=== PATIENT | male | born 1940 | race Caucasian/White ===

== ENCOUNTER 2018-01-28 16:15 | Emergency (ER) | payer MEDICARE, OTHER ==
[~2018-01-28] VITALS: Ht 185.4 cm; Wt 101.8 kg
[2018-01-28 17:00] LABS: BASOPHILS % (AUTO) 0.3 % (0-1); EOSINOPHILS # (AUTO) 0.1 X10'3 (0-0.9); HEMATOCRIT 39.8 % (42.0-52.0); HEMOGLOBIN 13.3 g/dl (14.0-17.9); LYMPHOCYTES # (AUTO) 1.2 X10'3 (1.1-4.8); LYMPHOCYTES % (AUTO) 23.5 % (21-51); MEAN CORPUSCULAR HGB CONC 33.3 % (33.0-36.5); MEAN CORPUSCULAR VOLUME 99.2 FL (78-98); MEAN PLATELET VOLUME 8.8 FL (7.4-10.4); MONOCYTES # (AUTO) 0.5 X10'3 (0-0.9); NEUTROPHILS # (AUTO) 3.2 X10'3 (1.8-7.7); NEUTROPHILS % (AUTO) 65.2 % (42-75); PLATELET COUNT 234 X10'3 (140-440); RED BLOOD COUNT 4.02 X10'6 (4.70-6.10); RED CELL DISTRIBUTION WIDTH 14.4 % (11.5-14.5); WHITE BLOOD COUNT 4.9 X10'3 (4.5-11.0)
[2018-01-28 17:13] LABS: ALANINE AMINOTRANSFERASE 27 U/L (12-78); ALBUMIN 3.7 G/DL (3.4-5.0); ALBUMIN/GLOBULIN RATIO 1.1 (1.1-1.5); ALKALINE PHOSPHATASE 81 IU/L (46-116); ANION GAP 8 (8-16); ASPARTATE AMINO TRANSFERASE 17 U/L (10-37); BILIRUBIN,TOTAL 0.7 MG/DL (0.1-1.0); BLOOD UREA NITROGEN 17 MG/DL (7-18); BUN/CREATININE RATIO 17.5 (5.4-32.0); CALCIUM 8.2 MG/DL (8.5-10.1); CHLORIDE 107 MMOL/L (99-107); CREATININE 0.97 MG/DL (0.60-1.10); GLUCOSE 84 MG/DL (70-104); POTASSIUM 4.1 MMOL/L (3.5-5.1); SODIUM 144 MMOL/L (135-145); TOTAL CARBON DIOXIDE 29.4 MMOL/L (24-32); TOTAL PROTEIN 7.1 G/DL (6.4-8.2); eGFR 75 ML/MIN
[2018-01-28] MEDS ORDERED: DONE10TA44 PO (17:13)
[2018-01-28] MEDS ORDERED: SERT25TA PO (17:15)
[2018-01-28] MEDS ORDERED: MIRT15TA3 PO (17:15)
[2018-01-28 17:22] LABS: ETHANOL < 0.010 GM/DL (0.0-0.010)
[2018-01-28 18:28] LABS: CLARITY,URINE SLIGHTLY CLOUDY (Clear); COLOR,URINE YELLOW (Yellow); GLUCOSE, URINE NEGATIVE (Neg); KETONES,URINE NEGATIVE (Neg); LEUKOCYTE ESTERASE ,URINE NEGATIVE (Neg); NITRITES, URINE NEGATIVE (Neg); OCCULT BLOOD,URINE NEGATIVE (Neg); PH,URINE 5.5 (4.8-8.0); PROTEIN,URINE NEGATIVE (Neg); UROBILINOGEN,URINE 0.2 E.U/dL (0.2-1.0)
[2018-01-28 18:29] LABS: UA COLLECTION TYPE CLN CATCH MIDSTREAM
[2018-01-28 18:40] LABS: URINE AMPHETAMINE SCREEN NEGATIVE (Neg); URINE BARBITUATE SCREEN NEGATIVE (Neg); URINE BENZODIAZEPINES SCREEN NEGATIVE (Neg); URINE CANNABINOID SCREEN NEGATIVE (Neg); URINE COCAINE SCREEN NEGATIVE (Neg); URINE METHADONE SCREEN NEGATIVE (Neg); URINE OPIATE SCREEN NEGATIVE (Neg); URINE PHENCYCLIDINE SCREEN NEGATIVE (Neg)
[2018-01-28 18:53] LABS: RBC,URINE 0-2 /HPF (0-2)
[2018-01-28 18:54] LABS: BACTERIA,URINE FEW /HPF (Neg); MUCUS STRANDS MANY /LPF (Neg); SQUAMOUS EPITHELIAL CELL,UR FEW /LPF (FEW)
[2018-01-29] MEDS: donepezil 5mg tablet PO SCH (09:12)
[2018-01-29] MEDS: sertraline 25mg tablet PO SCH (09:13)
[2018-01-29] MEDS ORDERED: LORazepam 2 mg/ml vial IM ONE (20:45)
[2018-01-29] MEDS ORDERED: diphenhydrAMINE 50 mg/ml inj IM ONE (20:45)
[2018-01-29] MEDS ORDERED: haloperidol lactate 5mg/ml inj IM ONE (20:45)
[2018-01-29] MEDS ORDERED: mirtazapine 15mg tablet PO SCH (21:00)
[2018-01-30] MEDS: sertraline 25mg tablet PO SCH (08:45)
[2018-01-30] MEDS: donepezil 5mg tablet PO SCH (08:46)
[2018-01-30 17:03] VITALS: BP 135/94
== END 2018-01-30 16:00 ==
LOC: ER 16:15
DX: R45.851 Suicidal ideations (principal); F32.9 Major depressive disorder, single episode, unspecified; Z90.49 Acquired absence of other specified parts of digestive tract; Z79.899 Other long term (current) drug therapy
CPT/HCPCS: 36415; 80053; 80305; 80320; 81001; 84443; 85025; 96372; 99285; J1200; J1630; J2060

== ENCOUNTER 2018-01-30 13:36 | Inpatient (IN) | payer MEDICARE, OTHER ==
[~2018-01-30] VITALS: Ht 190.5 cm; Wt 98.0 kg
[~2018-01-30 13:36] MED LIST: DONE10TA44 PO; MIRT15TA3 PO; SERT25TA PO
[2018-01-30] MEDS ORDERED: mag hydrox/Alum hydrox/simeth 30ml oral suspension PO PRN (17:55)
[2018-01-30] MEDS ORDERED: acetaminophen 325mg tablet PO PRN ×2 (17:55)
[2018-01-30] MEDS ORDERED: tuberculin, purif. prot. deriv. 5 units/0.1ml ID ONE (17:55)
[2018-01-30] MEDS ORDERED: magnesium hydroxide 30ml (MOM) UD suspension PO PRN (17:55)
[2018-01-30 20:05] VITALS: BP 171/72
[2018-01-30] MEDS: mirtazapine 15mg tablet PO SCH (20:37)
[2018-01-31] MEDS: sertraline 25mg tablet PO SCH (08:52)
[2018-01-31] MEDS: donepezil 5mg tablet PO SCH (08:52)
[2018-01-31 09:00] VITALS: BP 95/68
[2018-01-31] MEDS ORDERED: OLANZapine 5mg rapidly disint. tablet PO PRN (09:20)
[2018-01-31] MEDS: LORazepam 1 MG tablet PO PRN (09:28)
[2018-01-31 19:00] VITALS: BP 129/76
[2018-01-31] MEDS: mirtazapine 15mg tablet PO SCH (21:03)
[2018-02-01 08:00] VITALS: BP 139/76
[2018-02-01] MEDS: sertraline 25mg tablet PO SCH (08:04)
[2018-02-01] MEDS: donepezil 5mg tablet PO SCH (08:05)
[2018-02-01 08:31] VITALS: BP 139/76
[2018-02-01 09:29] LABS: HEMOGLOBIN A1C 5.5 % (4.5-6.2)
[2018-02-01 09:34] LABS: CHOLESTEROL 143 MG/DL (0-200); HDL CHOLESTEROL 47 MG/DL (35-60); LDL CHOLESTEROL 86 MG/DL (50-100); TRIGLYCERIDES 88 MG/DL (20-135)
[2018-02-01 19:00] VITALS: BP 126/66
[2018-02-01] MEDS: mirtazapine 15mg tablet PO SCH (20:19)
[2018-02-02 08:02] VITALS: BP 159/76
[2018-02-02] MEDS: donepezil 5mg tablet PO SCH (08:05)
[2018-02-02] MEDS: sertraline 25mg tablet PO SCH (08:05)
[2018-02-02 19:00] VITALS: BP 145/75
[2018-02-02] MEDS: mirtazapine 15mg tablet PO SCH (21:05)
[2018-02-03 08:00] VITALS: BP 122/76
[2018-02-03] MEDS: donepezil 5mg tablet PO SCH (08:51)
[2018-02-03] MEDS: sertraline 25mg tablet PO SCH (08:51)
[2018-02-03] MEDS: LORazepam 1 MG tablet PO PRN (08:54)
[2018-02-03] MEDS: cetirizine 10mg tablet PO SCH (09:49)
[2018-02-03 19:27] VITALS: BP 125/65
[2018-02-03] MEDS: mirtazapine 15mg tablet PO SCH (20:47)
[2018-02-04] MEDS: donepezil 5mg tablet PO SCH (07:54)
[2018-02-04] MEDS: cetirizine 10mg tablet PO SCH (07:54)
[2018-02-04] MEDS: sertraline 25mg tablet PO SCH (07:54)
[2018-02-04 08:00] VITALS: BP 131/71
[2018-02-04 19:47] VITALS: BP 124/66
[2018-02-04] MEDS: mirtazapine 15mg tablet PO SCH (20:44)
[2018-02-05] MEDS: sertraline 25mg tablet PO SCH (07:50)
[2018-02-05] MEDS: cetirizine 10mg tablet PO SCH (07:50)
[2018-02-05] MEDS: donepezil 5mg tablet PO SCH (07:50)
[2018-02-05 08:00] VITALS: BP 143/71
[2018-02-05 20:00] VITALS: BP 120/61
[2018-02-05] MEDS: mirtazapine 15mg tablet PO SCH (20:44)
[2018-02-06] MEDS: cetirizine 10mg tablet PO SCH (07:49)
[2018-02-06] MEDS: sertraline 25mg tablet PO SCH (07:49)
[2018-02-06] MEDS: donepezil 5mg tablet PO SCH (07:49)
[2018-02-06 08:19] VITALS: BP 145/82
[2018-02-06 20:00] VITALS: BP 127/65
[2018-02-06] MEDS: mirtazapine 15mg tablet PO SCH (21:02)
[2018-02-07] MEDS: cetirizine 10mg tablet PO SCH (07:59)
[2018-02-07] MEDS: sertraline 25mg tablet PO SCH (07:59)
[2018-02-07 08:00] VITALS: BP 125/67
[2018-02-07] MEDS: donepezil 5mg tablet PO SCH (08:00)
[2018-02-07 19:00] VITALS: BP 124/67
[2018-02-07] MEDS: mirtazapine 15mg tablet PO SCH (21:23)
[2018-02-08 08:00] VITALS: BP 134/74
[2018-02-08] MEDS: sertraline 25mg tablet PO SCH (08:06)
[2018-02-08] MEDS: donepezil 5mg tablet PO SCH (08:07)
[2018-02-08] MEDS: cetirizine 10mg tablet PO SCH (08:07)
[2018-02-08 19:00] VITALS: BP 111/68
[2018-02-08] MEDS: mirtazapine 15mg tablet PO SCH (21:07)
[2018-02-09 08:00] VITALS: BP 115/47
[2018-02-09] MEDS: sertraline 50mg tablet PO SCH (08:09)
[2018-02-09] MEDS: cetirizine 10mg tablet PO SCH (08:09)
[2018-02-09] MEDS: donepezil 5mg tablet PO SCH (08:09)
[2018-02-09 19:00] VITALS: BP 129/68
[2018-02-09] MEDS: mirtazapine 15mg tablet PO SCH (20:42)
[2018-02-10 08:00] VITALS: BP 141/67
[2018-02-10] MEDS: cetirizine 10mg tablet PO SCH (08:18)
[2018-02-10] MEDS: donepezil 5mg tablet PO SCH (08:18)
[2018-02-10] MEDS: sertraline 50mg tablet PO SCH (08:19)
[2018-02-10 19:55] VITALS: BP 124/66
[2018-02-10] MEDS: mirtazapine 15mg tablet PO SCH (20:24)
[2018-02-11 08:00] VITALS: BP 138/69
[2018-02-11] MEDS: donepezil 5mg tablet PO SCH (08:10)
[2018-02-11] MEDS: sertraline 50mg tablet PO SCH (08:10)
[2018-02-11] MEDS: cetirizine 10mg tablet PO SCH (08:10)
[2018-02-11 19:52] VITALS: BP 132/69
[2018-02-11] MEDS: mirtazapine 15mg tablet PO SCH (20:32)
[2018-02-12] MEDS: sertraline 50mg tablet PO SCH (07:45)
[2018-02-12] MEDS: cetirizine 10mg tablet PO SCH (07:45)
[2018-02-12] MEDS: donepezil 5mg tablet PO SCH (07:45)
[2018-02-12 08:00] VITALS: BP 122/64
[2018-02-12 20:00] VITALS: BP 123/66
[2018-02-12] MEDS: mirtazapine 15mg tablet PO SCH (20:09)
[2018-02-13 07:42] VITALS: BP 140/70
[2018-02-13] MEDS: cetirizine 10mg tablet PO SCH (07:49)
[2018-02-13] MEDS: sertraline 50mg tablet PO SCH (07:50)
[2018-02-13] MEDS: donepezil 5mg tablet PO SCH (07:50)
[2018-02-13 20:11] VITALS: BP 127/68
[2018-02-13] MEDS: mirtazapine 15mg tablet PO SCH (20:28)
[2018-02-14] MEDS: donepezil 5mg tablet PO SCH (08:07)
[2018-02-14] MEDS: sertraline 50mg tablet PO SCH (08:08)
[2018-02-14] MEDS: cetirizine 10mg tablet PO SCH (08:08)
[2018-02-14 08:10] VITALS: BP 126/75
[2018-02-14 19:00] VITALS: BP 139/63
[2018-02-14] MEDS: mirtazapine 15mg tablet PO SCH (20:39)
[2018-02-14] MEDS: ibuprofen tablet 400 MG TABLET PO PRN (20:39)
[2018-02-15 07:38] VITALS: BP 119/77
[2018-02-15] MEDS: donepezil 5mg tablet PO SCH (08:21)
[2018-02-15] MEDS: sertraline 50mg tablet PO SCH (08:21)
[2018-02-15] MEDS: LORazepam 1 MG tablet PO PRN (08:21)
[2018-02-15] MEDS: cetirizine 10mg tablet PO SCH (08:21)
[2018-02-15 19:00] VITALS: BP 147/71
[2018-02-15] MEDS: mirtazapine 15mg tablet PO SCH (20:29)
[2018-02-16] MEDS: cetirizine 10mg tablet PO SCH (07:34)
[2018-02-16] MEDS: sertraline 50mg tablet PO SCH (07:34)
[2018-02-16] MEDS: donepezil 5mg tablet PO SCH (07:34)
[2018-02-16 08:00] VITALS: BP 140/76
[2018-02-16 19:00] VITALS: BP 139/68
[2018-02-16] MEDS: mirtazapine 15mg tablet PO SCH (20:49)
[2018-02-17] MEDS: cetirizine 10mg tablet PO SCH (07:49)
[2018-02-17] MEDS: donepezil 5mg tablet PO SCH (07:49)
[2018-02-17] MEDS: sertraline 50mg tablet PO SCH (07:50)
[2018-02-17 08:00] VITALS: BP 128/72
[2018-02-17 19:55] VITALS: BP 133/70
[2018-02-17] MEDS: mirtazapine 15mg tablet PO SCH (21:26)
[2018-02-18 07:38] VITALS: BP 111/72
[2018-02-18] MEDS: sertraline 50mg tablet PO SCH (08:18)
[2018-02-18] MEDS: donepezil 5mg tablet PO SCH (08:18)
[2018-02-18] MEDS: cetirizine 10mg tablet PO SCH (08:18)
[2018-02-18 19:56] VITALS: BP 134/71
[2018-02-18] MEDS: mirtazapine 15mg tablet PO SCH (21:00)
[2018-02-19 08:00] VITALS: BP 134/63
[2018-02-19] MEDS: sertraline 50mg tablet PO SCH (08:52)
[2018-02-19] MEDS: cetirizine 10mg tablet PO SCH (08:52)
[2018-02-19] MEDS: donepezil 5mg tablet PO SCH (08:52)
[2018-02-19 19:00] VITALS: BP 94/64
[2018-02-19] MEDS: mirtazapine 15mg tablet PO SCH (20:37)
[2018-02-20 08:00] VITALS: BP 133/70
[2018-02-20] MEDS: donepezil 5mg tablet PO SCH (08:02)
[2018-02-20] MEDS: cetirizine 10mg tablet PO SCH (08:02)
[2018-02-20] MEDS: sertraline 50mg tablet PO SCH (08:02)
[2018-02-20 20:00] VITALS: BP 120/64
[2018-02-20] MEDS: mirtazapine 15mg tablet PO SCH (20:42)
[2018-02-21 08:00] VITALS: BP 132/72
[2018-02-21] MEDS: cetirizine 10mg tablet PO SCH (08:07)
[2018-02-21] MEDS: sertraline 50mg tablet PO SCH (08:07)
[2018-02-21] MEDS: donepezil 5mg tablet PO SCH (08:07)
[2018-02-21 20:00] VITALS: BP 150/64
[2018-02-21] MEDS: mirtazapine 15mg tablet PO SCH (21:28)
[2018-02-21] MEDS: ibuprofen tablet 400 MG TABLET PO PRN (21:30)
[2018-02-22 08:00] VITALS: BP 137/77
[2018-02-22] MEDS: cetirizine 10mg tablet PO SCH (08:11)
[2018-02-22] MEDS: donepezil 5mg tablet PO SCH (08:11)
[2018-02-22] MEDS: sertraline 50mg tablet PO SCH (08:11)
[2018-02-22 19:00] VITALS: BP 137/71
[2018-02-22] MEDS: mirtazapine 15mg tablet PO SCH (21:12)
[2018-02-23] MEDS: sertraline 50mg tablet PO SCH (08:17)
[2018-02-23] MEDS: donepezil 5mg tablet PO SCH (08:17)
[2018-02-23] MEDS: cetirizine 10mg tablet PO SCH (08:17)
[2018-02-23 08:49] VITALS: BP 128/71
[2018-02-23 20:00] VITALS: BP 128/60
[2018-02-23] MEDS: mirtazapine 15mg tablet PO SCH (20:44)
[2018-02-24] MEDS: cetirizine 10mg tablet PO SCH (07:35)
[2018-02-24] MEDS: sertraline 50mg tablet PO SCH (07:35)
[2018-02-24] MEDS: donepezil 5mg tablet PO SCH (07:35)
[2018-02-24 08:00] VITALS: BP 137/69
[2018-02-24 19:50] VITALS: BP 147/76
[2018-02-24] MEDS: mirtazapine 15mg tablet PO SCH (21:05)
[2018-02-25 08:00] VITALS: BP 107/52
[2018-02-25] MEDS: sertraline 50mg tablet PO SCH (08:03)
[2018-02-25] MEDS: donepezil 5mg tablet PO SCH (08:03)
[2018-02-25] MEDS: cetirizine 10mg tablet PO SCH (08:03)
[2018-02-25 19:50] VITALS: BP 102/52
[2018-02-25] MEDS: mirtazapine 15mg tablet PO SCH (21:45)
[2018-02-26 08:00] VITALS: BP 132/71
[2018-02-26] MEDS: sertraline 50mg tablet PO SCH (08:10)
[2018-02-26] MEDS: cetirizine 10mg tablet PO SCH (08:10)
[2018-02-26] MEDS: donepezil 5mg tablet PO SCH (08:10)
[2018-02-26 20:00] VITALS: BP 128/69
[2018-02-26] MEDS: mirtazapine 15mg tablet PO SCH (21:42)
[2018-02-27 08:00] VITALS: BP 118/67
[2018-02-27] MEDS: sertraline 50mg tablet PO SCH (08:26)
[2018-02-27] MEDS: donepezil 5mg tablet PO SCH (08:26)
[2018-02-27] MEDS: cetirizine 10mg tablet PO SCH (08:26)
[2018-02-27 20:00] VITALS: BP 108/50
[2018-02-27] MEDS: mirtazapine 15mg tablet PO SCH (21:22)
[2018-02-28 08:00] VITALS: BP 145/62
[2018-02-28] MEDS: cetirizine 10mg tablet PO SCH (08:16)
[2018-02-28] MEDS: sertraline 50mg tablet PO SCH (08:16)
[2018-02-28] MEDS: donepezil 5mg tablet PO SCH (08:16)
[2018-02-28 19:00] VITALS: BP 130/71
[2018-02-28] MEDS: mirtazapine 15mg tablet PO SCH (22:20)
[2018-02-28] MEDS: ibuprofen tablet 400 MG TABLET PO PRN (22:21)
[2018-03-01 08:00] VITALS: BP 127/75
[2018-03-01] MEDS: cetirizine 10mg tablet PO SCH (08:18)
[2018-03-01] MEDS: sertraline 50mg tablet PO SCH (08:18)
[2018-03-01 20:00] VITALS: BP 124/70
[2018-03-01] MEDS ORDERED: donepezil 5mg tablet PO SCH (21:00)
[2018-03-01] MEDS: mirtazapine 15mg tablet PO SCH (21:24)
[2018-03-01] MEDS: donepezil 5mg tablet PO SCH (21:24)
[2018-03-02 08:00] VITALS: BP 123/70
[2018-03-02] MEDS: cetirizine 10mg tablet PO SCH (08:30)
[2018-03-02] MEDS: sertraline 50mg tablet PO SCH (08:30)
[2018-03-02 20:00] VITALS: BP 130/66
[2018-03-02] MEDS: mirtazapine 15mg tablet PO SCH (21:00)
[2018-03-02] MEDS: donepezil 5mg tablet PO SCH (21:00)
[2018-03-03 08:00] VITALS: BP 122/73
[2018-03-03] MEDS: memantine 5mg tablet PO SCH (08:14)
[2018-03-03] MEDS: cetirizine 10mg tablet PO SCH (08:14)
[2018-03-03] MEDS: sertraline 50mg tablet PO SCH (08:14)
[2018-03-03 20:00] VITALS: BP 140/66
[2018-03-03] MEDS: LORazepam 1 MG tablet PO PRN (21:05)
[2018-03-03] MEDS: donepezil 5mg tablet PO SCH (21:05)
[2018-03-03] MEDS: mirtazapine 15mg tablet PO SCH (21:05)
[2018-03-04 08:00] VITALS: BP 106/56
[2018-03-04] MEDS: cetirizine 10mg tablet PO SCH (08:12)
[2018-03-04] MEDS: sertraline 50mg tablet PO SCH (08:13)
[2018-03-04] MEDS: memantine 5mg tablet PO SCH (08:13)
[2018-03-04] MEDS ORDERED: MEMA5TAB40 PO (10:23)
[2018-03-04] MEDS ORDERED: MIRT30TA8 PO (10:23)
[2018-03-04] MEDS ORDERED: DONE10TA37 PO (10:23)
[2018-03-04] MEDS ORDERED: CETI-110 PO (10:23)
[2018-03-04] MEDS ORDERED: SERT100T10 PO (10:23)
== END 2018-03-04 15:10 | disposition home health service (06) | DRG 885 ==
LOC: ADULT MH 13:36
PROVIDERS: ADMIT Psychiatry & Neurology Psychiatry; ATTEND Psychiatry & Neurology Psychiatry
DX: F33.2 Major depressive disorder, recurrent severe without psychotic features (principal); R45.851 Suicidal ideations; F03.90 Unspecified dementia, unspecified severity, without behavioral disturbance, psychotic disturbance, mood disturbance, and anxiety; R10.9 Unspecified abdominal pain; H53.40 Unspecified visual field defects; Z60.2 Problems related to living alone; H54.8 Legal blindness, as defined in USA; H91.90 Unspecified hearing loss, unspecified ear; I10 Essential (primary) hypertension; Z23 Encounter for immunization; Z90.49 Acquired absence of other specified parts of digestive tract; Z79.899 Other long term (current) drug therapy
CPT/HCPCS: 36415; 80061; 83036; 87070

== ENCOUNTER 2020-02-25 09:09 | Inpatient (IN) | payer MEDICARE ==
[~2020-02-25] VITALS: Ht 188 cm; Wt 100.0 kg
[~2020-02-25 09:09] MED LIST changes: +CETI-91 PO; +DONE10TA37 PO; -DONE10TA44 PO; +MEMA5TAB42 PO; -MIRT15TA3 PO; +MIRT30TA8 PO; +SERT100T10 PO; -SERT25TA PO
[2020-02-25 11:27] LABS: BASOPHILS # (AUTO) 0.1 X10'3 (0-0.2); BASOPHILS % (AUTO) 0.6 % (0-1); EOSINOPHILS # (AUTO) 0.1 X10'3 (0-0.9); EOSINOPHILS % (AUTO) 0.8 % (0-6); HEMATOCRIT 38.7 % (42.0-52.0); HEMOGLOBIN 13.1 g/dl (14.0-17.9); LYMPHOCYTES # (AUTO) 1.4 X10'3 (1.1-4.8); LYMPHOCYTES % (AUTO) 13.1 % (21-51); MEAN CORPUSCULAR HGB CONC 33.7 g/dL (33.0-36.5); MEAN CORPUSCULAR VOLUME 97.8 FL (78-98); MONOCYTES # (AUTO) 1.5 X10'3 (0-0.9); MONOCYTES % (AUTO) 14.1 % (2-12); NEUTROPHILS # (AUTO) 7.5 X10'3 (1.8-7.7); NEUTROPHILS % (AUTO) 71.4 % (42-75); PLATELET COUNT 346 X10'3 (140-440); RED BLOOD COUNT 3.96 X10'6 (4.70-6.10); RED CELL DISTRIBUTION WIDTH 14.2 % (11.5-14.5); WHITE BLOOD COUNT 10.5 X10'3 (4.5-11.0)
[2020-02-25 11:37] LABS: ALANINE AMINOTRANSFERASE 19 U/L (12-78); ALBUMIN 3.3 G/DL (3.4-5.0); ALBUMIN/GLOBULIN RATIO 0.8 (1.1-1.5); ALKALINE PHOSPHATASE 72 IU/L (46-116); ANION GAP 9 (8-16); ASPARTATE AMINO TRANSFERASE 16 U/L (10-37); BILIRUBIN,TOTAL 0.7 MG/DL (0.1-1.0); BLOOD UREA NITROGEN 10 MG/DL (7-18); BUN/CREATININE RATIO 12.2 (5.4-32.0); CALCIUM 8.9 MG/DL (8.5-10.1); CHLORIDE 106 MMOL/L (99-107); CREATININE 0.82 MG/DL (0.60-1.10); GLUCOSE 100 MG/DL (70-104); POTASSIUM 4.1 MMOL/L (3.5-5.1); SODIUM 142 MMOL/L (135-145); TOTAL CARBON DIOXIDE 27.4 MMOL/L (24-32); TOTAL PROTEIN 7.5 G/DL (6.4-8.2); eGFR 90 ML/MIN
[2020-02-25 12:44] LABS: CLARITY,URINE CLOUDY (Clear); COLOR,URINE YELLOW (Yellow); GLUCOSE, URINE NEGATIVE (Neg); KETONES,URINE NEGATIVE (Neg); LEUKOCYTE ESTERASE ,URINE LARGE (Neg); NITRITES, URINE POSITIVE (Neg); OCCULT BLOOD,URINE SMALL (Neg); PROTEIN,URINE NEGATIVE (Neg); UROBILINOGEN,URINE 0.2 E.U/dL (0.2-1.0)
[2020-02-25 12:47] LABS: UA COLLECTION TYPE NON-SPECIFIED
[2020-02-25 13:00] LABS: BACTERIA,URINE 4+ /HPF (Neg); RBC,URINE 0-2 /HPF (0-2); WBC,URINE TNTC /HPF (0-4)
[2020-02-25 13:01] LABS: SQUAMOUS EPITHELIAL CELL,UR NONE SEEN /LPF (FEW)
[2020-02-25] MEDS ORDERED: MIRT30TA8 PO (13:05)
[2020-02-25] MEDS ORDERED: DONE10TA44 PO (13:05)
[2020-02-25] MEDS ORDERED: MEMA10TA PO (13:05)
[2020-02-25] MEDS ORDERED: SERT100T PO (13:05)
[2020-02-25] MEDS ORDERED: CefTRIAXone/D5W-Rocephin 1gm 50 ML IV ONE (13:35)
[2020-02-25] MEDS ORDERED: potassium CL 10mEq/100ml bag 100 ML IV PRN ×2 (13:40)
[2020-02-25] MEDS ORDERED: ondansetron/PF 4mg/2ml inj IV PRN (13:40)
[2020-02-25] MEDS ORDERED: magnesium 2GM in 50ml NS 50 ML IV PRN (13:40)
[2020-02-25] MEDS ORDERED: acetaminophen 325mg tablet PO PRN (13:40)
[2020-02-25] MEDS ORDERED: magnesium Cl slow-release 64mg tablet PO PRN (13:40)
[2020-02-25] MEDS ORDERED: magnesium 4gm in 100ml NS 100 ML IV PRN (13:40)
[2020-02-25] MEDS ORDERED: potassium Cl 20 mEq SR tablet PO PRN ×2 (13:40)
[2020-02-25] MEDS: normal saline 1000ml 1,000 ML IV SCH ×2 (14:04→22:19)
--- NOTE | 2020-02-25 15:24 | NUR ---
PULLED IV OUT
[2020-02-25] MEDS: K and/or MAG REPLACEMENT MC SCH (20:00)
[2020-02-25] MEDS: docusate sod 100mg capsule PO SCH (20:00)
--- NOTE | 2020-02-25 20:57 | NUR ---
Patient in room ED 14. I have received report from Bev CORTEZ and had the opportunity to ask questions and assume patient care.
[2020-02-25 21:15] VITALS: BP 169/83
[2020-02-26 02:09] VITALS: BP 140/71
[2020-02-26 06:00] VITALS: BP 131/68
--- NOTE | 2020-02-26 06:10 | NUR ---
Patient in room ORTHO 4022. I have received report from Veronica and had the opportunity to ask questions and assume patient care.
--- NOTE | 2020-02-26 06:11 | NUR ---
Problems reprioritized. Patient report given, questions answered & plan of care reviewed with Arianne CORTEZ.
[2020-02-26 06:44] LABS: BASOPHILS % (AUTO) 0.3 % (0-1); EOSINOPHILS # (AUTO) 0.2 X10'3 (0-0.9); EOSINOPHILS % (AUTO) 2.7 % (0-6); HEMATOCRIT 36.3 % (42.0-52.0); HEMOGLOBIN 12.1 g/dl (14.0-17.9); LYMPHOCYTES # (AUTO) 1.5 X10'3 (1.1-4.8); LYMPHOCYTES % (AUTO) 17.7 % (21-51); MEAN CORPUSCULAR HEMOGLOBIN 32.3 PG (27.0-31.0); MEAN CORPUSCULAR HGB CONC 33.2 g/dL (33.0-36.5); MEAN PLATELET VOLUME 7.9 FL (7.4-10.4); MONOCYTES # (AUTO) 1.3 X10'3 (0-0.9); MONOCYTES % (AUTO) 15.3 % (2-12); NEUTROPHILS # (AUTO) 5.5 X10'3 (1.8-7.7); PLATELET COUNT 341 X10'3 (140-440); RED BLOOD COUNT 3.74 X10'6 (4.70-6.10); RED CELL DISTRIBUTION WIDTH 14.2 % (11.5-14.5); WHITE BLOOD COUNT 8.6 X10'3 (4.5-11.0)
[2020-02-26 06:59] LABS: ALBUMIN 2.9 G/DL (3.4-5.0); ANION GAP 11 (8-16); BLOOD UREA NITROGEN 10 MG/DL (7-18); BUN/CREATININE RATIO 12.3 (5.4-32.0); CALCIUM 8.5 MG/DL (8.5-10.1); CHLORIDE 108 MMOL/L (99-107); CREATININE 0.81 MG/DL (0.60-1.10); GLUCOSE 90 MG/DL (70-104); MAGNESIUM 2.1 MG/DL (1.5-2.4); POTASSIUM 3.9 MMOL/L (3.5-5.1); SODIUM 144 MMOL/L (135-145); TOTAL CARBON DIOXIDE 25.5 MMOL/L (24-32); eGFR > 90 ML/MIN
[2020-02-26] MEDS: docusate sod 100mg capsule PO SCH ×2 (07:39→20:00)
[2020-02-26] MEDS: K and/or MAG REPLACEMENT MC SCH ×2 (07:40→20:00)
[2020-02-26 08:15] LABS: ANISOCYTOSIS 1+; PLATELET ESTIMATE NORMAL; TOTAL CELLS COUNTED 100
[2020-02-26 10:00] VITALS: BP 162/91
[2020-02-26] MEDS: CefTRIAXone/D5W-Rocephin 1gm 50 ML IV SCH (14:43)
[2020-02-26] MEDS: normal saline 1000ml 1,000 ML IV SCH ×2 (14:49→19:40)
[2020-02-26 18:00] VITALS: BP 143/70
--- NOTE | 2020-02-26 18:31 | NUR ---
Problems reprioritized. Patient report given, questions answered & plan of care reviewed with
--- NOTE | 2020-02-26 19:00 | NUR ---
Patient in room ORTHO 4022. I have received report from Arianne CORTEZ and had the opportunity to ask questions and assume patient care.
[2020-02-26] MEDS: lactobacillus rhamnosus 10,000 MMU CELLS/CAPSULE PO SCH (20:14)
[2020-02-26 22:00] VITALS: BP 118/57
[2020-02-27] MEDS: normal saline 1000ml 1,000 ML IV SCH ×3 (05:46→23:58)
--- NOTE | 2020-02-27 06:20 | NUR ---
Problems reprioritized. Patient report given, questions answered & plan of care reviewed with Arianne CORTEZ.
--- NOTE | 2020-02-27 06:25 | NUR ---
Patient in room ORTHO 4022. I have received report from Veronica and had the opportunity to ask questions and assume patient care.
[2020-02-27 06:36] VITALS: BP 134/66
[2020-02-27] MEDS: CefTRIAXone/D5W-Rocephin 1gm 50 ML IV SCH (07:56)
[2020-02-27] MEDS: docusate sod 100mg capsule PO SCH ×2 (07:57→20:05)
[2020-02-27] MEDS: lactobacillus rhamnosus 10,000 MMU CELLS/CAPSULE PO SCH ×2 (07:57→20:05)
[2020-02-27 07:59] LABS: BASOPHILS % (AUTO) 0.3 % (0-1); EOSINOPHILS # (AUTO) 0.2 X10'3 (0-0.9); EOSINOPHILS % (AUTO) 2.4 % (0-6); HEMOGLOBIN 11.6 g/dl (14.0-17.9); LYMPHOCYTES # (AUTO) 1.5 X10'3 (1.1-4.8); LYMPHOCYTES % (AUTO) 17.1 % (21-51); MEAN CORPUSCULAR HEMOGLOBIN 32.3 PG (27.0-31.0); MEAN CORPUSCULAR HGB CONC 33.1 g/dL (33.0-36.5); MEAN CORPUSCULAR VOLUME 97.5 FL (78-98); MONOCYTES # (AUTO) 1.4 X10'3 (0-0.9); NEUTROPHILS # (AUTO) 5.7 X10'3 (1.8-7.7); NEUTROPHILS % (AUTO) 64.2 % (42-75); PLATELET COUNT 326 X10'3 (140-440); RED BLOOD COUNT 3.59 X10'6 (4.70-6.10); WHITE BLOOD COUNT 8.9 X10'3 (4.5-11.0)
[2020-02-27] MEDS: K and/or MAG REPLACEMENT MC SCH ×2 (08:00→18:58)
[2020-02-27 08:13] LABS: ALBUMIN 2.8 G/DL (3.4-5.0); ANION GAP 9 (8-16); BLOOD UREA NITROGEN 9 MG/DL (7-18); BUN/CREATININE RATIO 10.6 (5.4-32.0); CALCIUM 8.2 MG/DL (8.5-10.1); CHLORIDE 110 MMOL/L (99-107); CREATININE 0.85 MG/DL (0.60-1.10); GLUCOSE 94 MG/DL (70-104); POTASSIUM 3.7 MMOL/L (3.5-5.1); SODIUM 144 MMOL/L (135-145); TOTAL CARBON DIOXIDE 25.3 MMOL/L (24-32); eGFR 87 ML/MIN
[2020-02-27 09:14] LABS: TOTAL CELLS COUNTED 100
[2020-02-27 09:16] LABS: PLATELET ESTIMATE NORMAL
[2020-02-27 10:04] VITALS: BP 144/70
[2020-02-27] MEDS: memantine 5mg tablet PO SCH (11:26)
[2020-02-27] MEDS ORDERED: LEVO500T89 PO (15:18)
--- NOTE | 2020-02-27 17:09 | NUR ---
PAGER ID: [phone] MESSAGE: Arianne Bran on ortho, please call regarding pt in [phone]. Thank you Addendum: 02/27/20 at 1710 by Arianne Castro RN Received call from hospitalist. Hospitalist does not want pt to discharge via cab/[employer], hospitalist asked nursing staff to make arrangements for tomorrow
[2020-02-27 18:00] VITALS: BP 119/54
--- NOTE | 2020-02-27 18:12 | NUR ---
Problems reprioritized. Patient report given, questions answered & plan of care reviewed with Jane Mcguire
[2020-02-27] MEDS ORDERED: mirtazapine 15mg tablet PO SCH (21:00)
[2020-02-27] MEDS ORDERED: donepezil 5mg tablet PO SCH (21:00)
[2020-02-27 22:00] VITALS: BP 141/70
--- NOTE | 2020-02-28 06:00 | NUR ---
Patient in room ORTHO 4022. I have received report from Jane Mcguire and had the opportunity to ask questions and assume patient care.
--- NOTE | 2020-02-28 06:02 | NUR ---
Problems reprioritized. Patient report given, questions answered & plan of care reviewed with DIEGO Acuña.
[2020-02-28 06:15] LABS: BASOPHILS # (AUTO) 0.1 X10'3 (0-0.2); BASOPHILS % (AUTO) 0.8 % (0-1); EOSINOPHILS # (AUTO) 0.2 X10'3 (0-0.9); EOSINOPHILS % (AUTO) 2.2 % (0-6); HEMATOCRIT 36.9 % (42.0-52.0); HEMOGLOBIN 12.5 g/dl (14.0-17.9); LYMPHOCYTES # (AUTO) 1.7 X10'3 (1.1-4.8); LYMPHOCYTES % (AUTO) 18.8 % (21-51); MEAN CORPUSCULAR HEMOGLOBIN 33.3 PG (27.0-31.0); MEAN CORPUSCULAR HGB CONC 33.8 g/dL (33.0-36.5); MEAN CORPUSCULAR VOLUME 98.4 FL (78-98); MEAN PLATELET VOLUME 7.9 FL (7.4-10.4); MONOCYTES # (AUTO) 1.3 X10'3 (0-0.9); MONOCYTES % (AUTO) 14.1 % (2-12); NEUTROPHILS # (AUTO) 5.9 X10'3 (1.8-7.7); NEUTROPHILS % (AUTO) 64.1 % (42-75); PLATELET COUNT 328 X10'3 (140-440); RED BLOOD COUNT 3.75 X10'6 (4.70-6.10); RED CELL DISTRIBUTION WIDTH 13.8 % (11.5-14.5); WHITE BLOOD COUNT 9.1 X10'3 (4.5-11.0)
[2020-02-28 06:26] LABS: ALBUMIN 2.9 G/DL (3.4-5.0); ANION GAP 7 (8-16); BLOOD UREA NITROGEN 9 MG/DL (7-18); BUN/CREATININE RATIO 11.5 (5.4-32.0); CALCIUM 8.6 MG/DL (8.5-10.1); CHLORIDE 108 MMOL/L (99-107); CREATININE 0.78 MG/DL (0.60-1.10); GLUCOSE 93 MG/DL (70-104); MAGNESIUM 2.1 MG/DL (1.5-2.4); POTASSIUM 3.7 MMOL/L (3.5-5.1); SODIUM 140 MMOL/L (135-145); TOTAL CARBON DIOXIDE 24.6 MMOL/L (24-32); eGFR > 90 ML/MIN
[2020-02-28 06:40] VITALS: BP 160/78
[2020-02-28] MEDS: CefTRIAXone/D5W-Rocephin 1gm 50 ML IV SCH (08:00)
[2020-02-28] MEDS: K and/or MAG REPLACEMENT MC SCH (08:00)
[2020-02-28] MEDS ORDERED: sertraline 50mg tablet PO SCH (08:00)
[2020-02-28] MEDS: docusate sod 100mg capsule PO SCH (08:43)
[2020-02-28] MEDS: lactobacillus rhamnosus 10,000 MMU CELLS/CAPSULE PO SCH (08:43)
[2020-02-28] MEDS: memantine 5mg tablet PO SCH (08:43)
[2020-02-28 10:05] VITALS: BP 119/52
--- NOTE | 2020-02-28 11:05 | NUR ---
Reviewed discharge instructions with pt's facility caregiver. All of pt's belongings were given to pt's facility staff. Pt was transported by his facility's staff, back to his residence.
== END 2020-02-28 10:51 | disposition home health service (06) | DRG 690 ==
LOC: ER 09:09 → ED HOLD 13:40 → ORTHO 4S 21:12
PROVIDERS: ADMIT Internal Medicine; ATTEND Internal Medicine
DX: N39.0 Urinary tract infection, site not specified (principal); R62.7 Adult failure to thrive; M53.3 Sacrococcygeal disorders, not elsewhere classified; F03.90 Unspecified dementia, unspecified severity, without behavioral disturbance, psychotic disturbance, mood disturbance, and anxiety; W18.39XA Other fall on same level, initial encounter; F32.9 Major depressive disorder, single episode, unspecified; M54.9 Dorsalgia, unspecified; R26.81 Unsteadiness on feet; Z68.28 Body mass index [BMI] 28.0-28.9, adult; Y93.89 Activity, other specified; Y92.89 Other specified places as the place of occurrence of the external cause; Y99.8 Other external cause status; Z90.49 Acquired absence of other specified parts of digestive tract; Z79.899 Other long term (current) drug therapy
CPT/HCPCS: 36415; 70450; 72170; 80048; 80053; 81001; 83735; 85007; 85025; 87077; 87081; 87088; 87186; 96365; 97116; 97161; 97530; 99285; G0378; J0696; J7030

== ENCOUNTER 2020-04-26 10:14 | Emergency (ER) | payer MEDICARE ==
[~2020-04-26] VITALS: Ht 182.9 cm; Wt 86.4 kg
[~2020-04-26 10:14] MED LIST changes: -CETI-91 PO; -DONE10TA37 PO; +DONE10TA44 PO; +MEMA10TA PO; -MEMA5TAB42 PO; +SERT100T PO; -SERT100T10 PO
--- NOTE | 2020-04-26 11:08 | NUR ---
spoke with Nancy at [facility] and she says that he was sent in because he has been having diarrhea the last few days and then noticed to have mucous in the stool today and he has less energy and is a bit generally shaky. they state he normally can stand up with a 2 person assist but he was not able to this morning. they are concerned about c-diff as they have other people they are caring for.
[2020-04-26] MEDS: normal saline 1000ML IV soln IVB ONE (11:27)
[2020-04-26 11:39] LABS: BASOPHILS # (AUTO) 0.1 X10'3 (0-0.2); BASOPHILS % (AUTO) 0.5 % (0-1); EOSINOPHILS % (AUTO) 0.3 % (0-6); HEMATOCRIT 38.4 % (42.0-52.0); HEMOGLOBIN 12.6 g/dl (14.0-17.9); LYMPHOCYTES # (AUTO) 1.2 X10'3 (1.1-4.8); MEAN CORPUSCULAR HEMOGLOBIN 31.5 PG (27.0-31.0); MEAN CORPUSCULAR HGB CONC 32.8 g/dL (33.0-36.5); MEAN CORPUSCULAR VOLUME 95.9 FL (78-98); MONOCYTES # (AUTO) 1.8 X10'3 (0-0.9); NEUTROPHILS % (AUTO) 76.2 % (42-75); PLATELET COUNT 338 X10'3 (140-440); WHITE BLOOD COUNT 13.1 X10'3 (4.5-11.0)
[2020-04-26 11:44] LABS: ALANINE AMINOTRANSFERASE 19 U/L (12-78); ALBUMIN 2.9 G/DL (3.4-5.0); ALBUMIN/GLOBULIN RATIO 0.7 (1.1-1.5); ALKALINE PHOSPHATASE 67 IU/L (46-116); ANION GAP 9 (8-16); ASPARTATE AMINO TRANSFERASE 13 U/L (10-37); BILIRUBIN,TOTAL 0.3 MG/DL (0.1-1.0); BLOOD UREA NITROGEN 13 MG/DL (7-18); BUN/CREATININE RATIO 13.5 (5.4-32.0); CALCIUM 8.4 MG/DL (8.5-10.1); CHLORIDE 105 MMOL/L (99-107); CREATININE 0.96 MG/DL (0.60-1.10); GLUCOSE 113 MG/DL (70-104); MAGNESIUM 2.2 MG/DL (1.5-2.4); POTASSIUM 3.7 MMOL/L (3.5-5.1); SODIUM 140 MMOL/L (135-145); TOTAL PROTEIN 7.3 G/DL (6.4-8.2); eGFR 75 ML/MIN
[2020-04-26 12:24] LABS: CLARITY,URINE SLIGHTLY CLOUDY (Clear); COLOR,URINE YELLOW (Yellow); GLUCOSE, URINE NEGATIVE (Neg); KETONES,URINE NEGATIVE (Neg); LEUKOCYTE ESTERASE ,URINE NEGATIVE (Neg); NITRITES, URINE NEGATIVE (Neg); OCCULT BLOOD,URINE LARGE (Neg); PROTEIN,URINE TRACE mg/dl (Neg); UROBILINOGEN,URINE 0.2 E.U/dL (0.2-1.0)
[2020-04-26 12:25] LABS: UA COLLECTION TYPE CLN CATCH MIDSTREAM
[2020-04-26 12:34] LABS: HYALINE CASTS 0-3 /LPF (NEGATIVE); MUCUS STRANDS MANY /LPF (Neg); SQUAMOUS EPITHELIAL CELL,UR FEW /LPF (FEW); TRANSITIONAL EPI CELLS,URINE FEW /HPF
[2020-04-26 12:36] LABS: BACTERIA,URINE NONE SEEN /HPF (Neg); RBC,URINE 50-100 /HPF (0-2); WBC,URINE 0-4 /HPF (0-4)
--- NOTE | 2020-04-26 12:41 | NUR ---
pt resting in no distress. cleaned up a small amount of diarrhea, not enough to send.
--- NOTE | 2020-04-26 14:37 | NUR ---
[facility] FALGUNI GOMES WILL BE HERE BETWEEN 3:45-4 TO TOOL CLERK PT.
[2020-04-26 15:20] VITALS: BP 150/76
== END 2020-04-26 16:00 | disposition home or self-care (01) ==
LOC: ER 10:14
DX: R19.7 Diarrhea, unspecified (principal); R05 Cough; R53.83 Other fatigue; F32.9 Major depressive disorder, single episode, unspecified; F03.90 Unspecified dementia, unspecified severity, without behavioral disturbance, psychotic disturbance, mood disturbance, and anxiety; Z90.49 Acquired absence of other specified parts of digestive tract; Z79.899 Other long term (current) drug therapy
CPT/HCPCS: 36415; 71045; 80053; 81001; 83605; 83735; 84145; 85025; 93005; 99285; J7030

== ENCOUNTER 2021-06-01 09:55 | Emergency (ER) | payer MEDICARE ==
[~2021-06-01] VITALS: Ht 185.4 cm; Wt 100.0 kg
[~2021-06-01 09:55] MED LIST changes: +MIRT-88 PO; -MIRT30TA8 PO
[2021-06-01 10:20] VITALS: BP 193/105
[2021-06-01 10:51] LABS: BASOPHILS % (AUTO) 0.5 % (0-1); EOSINOPHILS # (AUTO) 0.2 X10'3 (0-0.9); EOSINOPHILS % (AUTO) 2.1 % (0-6); HEMATOCRIT 41.8 % (42.0-52.0); HEMOGLOBIN 13.7 g/dl (14.0-17.9); LYMPHOCYTES # (AUTO) 1.3 X10'3 (1.1-4.8); LYMPHOCYTES % (AUTO) 13.6 % (21-51); MEAN CORPUSCULAR HEMOGLOBIN 32.6 PG (27.0-31.0); MEAN CORPUSCULAR HGB CONC 32.9 g/dL (33.0-36.5); MEAN CORPUSCULAR VOLUME 99.3 FL (78-98); MEAN PLATELET VOLUME 8.7 FL (7.4-10.4); MONOCYTES # (AUTO) 1.3 X10'3 (0-0.9); MONOCYTES % (AUTO) 13.7 % (2-12); NEUTROPHILS # (AUTO) 6.8 X10'3 (1.8-7.7); NEUTROPHILS % (AUTO) 70.1 % (42-75); PLATELET COUNT 278 X10'3 (140-440); RED BLOOD COUNT 4.21 X10'6 (4.70-6.10); RED CELL DISTRIBUTION WIDTH 14.4 % (11.5-14.5); WHITE BLOOD COUNT 9.7 X10'3 (4.5-11.0)
[2021-06-01 11:02] LABS: ANION GAP 10 (8-16); CHLORIDE 106 MMOL/L (99-107); POTASSIUM 4.1 MMOL/L (3.5-5.1); SODIUM 141 MMOL/L (135-145)
[2021-06-01 11:20] LABS: ALANINE AMINOTRANSFERASE 18 U/L (12-78); ALBUMIN 3.7 G/DL (3.4-5.0); ALBUMIN/GLOBULIN RATIO 0.9 (1.1-1.5); ASPARTATE AMINO TRANSFERASE 14 U/L (10-37); BILIRUBIN,TOTAL 0.7 MG/DL (0.1-1.0); BLOOD UREA NITROGEN 13 MG/DL (7-18); BUN/CREATININE RATIO 13.5 (5.4-32.0); CREATININE 0.96 MG/DL (0.60-1.10); GLUCOSE 100 MG/DL (70-104); TOTAL PROTEIN 7.8 G/DL (6.4-8.2); eGFR 75 ML/MIN
[2021-06-01] MEDS ORDERED: ondansetron/PF 4mg/2ml inj IV ONE (12:55)
[2021-06-01] MEDS ORDERED: fentaNYL/PF 50MCG/1 ML 2ML syringe IV ONE (12:55)
[2021-06-01] MEDS ORDERED: ketorolac trometh. 30mg/ml inj. IV ONE (13:00)
[2021-06-01] MEDS ORDERED: acetaminophen 325mg tablet PO ONE (13:00)
[2021-06-01] MEDS ORDERED: LIDOcaine 5% patch TP ONE (13:05)
[2021-06-01] MEDS ORDERED: HYDR-3965 PO (13:16)
[2021-06-01] MEDS ORDERED: LIDO700A32 TOP (13:16)
== END 2021-06-01 18:32 ==
LOC: ER 09:56
DX: R07.81 Pleurodynia (principal); F32.A Depression, unspecified; Z90.49 Acquired absence of other specified parts of digestive tract; Z79.899 Other long term (current) drug therapy
CPT/HCPCS: 36415; 71045; 80053; 83880; 84484; 85025; 93005; 96374; 96375; 99285; J1885; J2405; J3010